=== PATIENT | male | born 1980 | race Caucasian/White ===

== ENCOUNTER 2019-05-10 20:21 | Emergency (ER) | payer MEDICAID ==
[~2019-05-10] VITALS: Ht 172.7 cm; Wt 72.6 kg
[2019-05-10 20:31] VITALS: BP 113/75
== END 2019-05-10 21:17 | disposition home or self-care (01) ==
LOC: ER 20:27
DX: L03.115 Cellulitis of right lower limb (principal); F19.10 Other psychoactive substance abuse, uncomplicated; F17.200 Nicotine dependence, unspecified, uncomplicated

== ENCOUNTER 2020-11-22 23:36 | Emergency (ER) | payer OTHER ==
[~2020-11-22] VITALS: Ht 172.7 cm; Wt 80.3 kg
[2020-11-23 00:26] VITALS: BP 121/67
--- NOTE | 2020-11-23 00:33 | NUR ---
patient left via ambulatory accompanied by [employer] in no distress
== END 2020-11-23 00:33 ==
LOC: ER 23:38
DX: S05.12XA Contusion of eyeball and orbital tissues, left eye, initial encounter (principal); Y08.89XA Assault by other specified means, initial encounter; Y93.89 Activity, other specified; Y92.89 Other specified places as the place of occurrence of the external cause; Y99.8 Other external cause status

== ENCOUNTER 2021-08-18 11:47 | Emergency (ER) | payer OTHER ==
[~2021-08-18] VITALS: Ht 172.7 cm; Wt 83.5 kg
--- NOTE | 2021-08-18 11:55 | NUR ---
BIB [id number] AND DIRECTOR OF BROADCAST OFFICERS FOR SEIZURE EPISODE IN [facility]. PT REPORTS HX OF SEIZURE WHEN WITHDRAWS FROM ALCOHOL. ADMITS DRINKING ALCOHOL. AAOX4, BREATHING EVEN AND UNLABORED, NOT IN RESP DISTRESS. SEIZURE PRECAUTIONS IN PLACE. ON MONITOR, VS STABLE. WILL CONTINUE TO MONITOR.
[2021-08-18] MEDS ORDERED: LORAZEPAM 1 MG TABLET PO ONE (12:00)
[2021-08-18] MEDS ORDERED: LORAZEPAM INJ 2 MG/ML VIAL ONE (12:07)
[2021-08-18] MEDS ORDERED: LORAZEPAM 1 MG TABLET ONE (12:09)
--- NOTE | 2021-08-18 12:30 | NUR ---
LAB AT BEDSIDE
--- NOTE | 2021-08-18 13:00 | NUR ---
URINE SAMPLE OBTAINED AND SENT TO LAB
--- NOTE | 2021-08-18 13:08 | NUR ---
LAB AT BEDSIDE AGAIN
--- NOTE | 2021-08-18 13:30 | NUR ---
SPOKE TO LAB. UNABLE TO DRAW BLOOD. WILL TRY AGAIN.
--- NOTE | 2021-08-18 14:34 | NUR ---
PT BACK FROM CT
--- NOTE | 2021-08-18 14:55 | NUR ---
LAB AT BEDSIDE
[2021-08-18 15:22] LABS: BASOPHILS # (AUTO) 0.1 K/uL (0.0-0.2); EOSINOPHILS % (AUTO) 1.1 % (0.0-6.0); HEMATOCRIT 44 % (39-51); HEMOGLOBIN 14.7 g/dL (13.5-17.5); LYMPHOCYTES # (AUTO) 2.4 K/uL (0.8-4.8); LYMPHOCYTES % (AUTO) 31.9 % (20.0-44.0); MEAN CORPUSCULAR HGB CONC 33 g/dl (31.0-36.0); MEAN CORPUSCULAR VOLUME 92 fL (80-96); MONOCYTES # (AUTO) 0.5 K/uL (0.1-1.30); MONOCYTES % (AUTO) 7.2 % (2.0-12.0); NEUTROPHILS # (AUTO) 4.4 K/uL (1.8-8.9); NEUTROPHILS % (AUTO) 58.8 % (43.0-81.0); PLATELET COUNT (AUTO) 213 K/uL (150-450); RED BLOOD CELL COUNT(AUTO) 4.81 MIL/uL (4.5-6.0); WHITE BLOOD COUNT (AUTO) 7.5 K/uL (4.3-11.0)
--- NOTE | 2021-08-18 15:22 | NUR ---
VS STABLE. NEEDS MET
[2021-08-18 15:38] LABS: ALCOHOL, BLOOD < 3 mg/dL (0-0); CALCIUM, SERUM 9.2 mg/dL (8.5-10.1); CARBON DIOXIDE 30 mmol/L (21-32); CHLORIDE 104 mmol/L (98-107); CREATININE 0.8 mg/dL (0.6-1.3); GLUCOSE 87 mg/dL (74-106); POTASSIUM 4.3 mmol/L (3.5-5.1); SODIUM SERUM 140 mmol/L (136-145); UREA NITROGEN, BLOOD 16 mg/dL (7-18)
--- NOTE | 2021-08-18 16:17 | NUR ---
Patient discharged to home in stable condition. Written and verbal after care instructions given. Patient verbalizes understanding of instruction.
[2021-08-18 16:18] VITALS: BP 113/62
== END 2021-08-18 16:18 | disposition home or self-care (01) ==
LOC: ER 11:48
DX: F19.10 Other psychoactive substance abuse, uncomplicated (principal)
CPT/HCPCS: 36415; 70450-TC; 80048-TC; 85025-TC; G0480; J2060

== ENCOUNTER 2021-09-09 15:20 | Emergency (ER) | payer OTHER ==
[~2021-09-09] VITALS: Ht 172.7 cm; Wt 85.3 kg
--- NOTE | 2021-09-09 15:32 | NUR ---
[employer] AT BEDSIDE
[2021-09-09] MEDS ORDERED: LORAZEPAM INJ 2 MG/ML VIAL ONE (15:46)
--- NOTE | 2021-09-09 15:59 | NUR ---
URINE SAMPLE COLLECTED AND SENT TO LAB
[2021-09-09] MEDS ORDERED: LORAZEPAM INJ 2 MG/ML VIAL IVP ONE (16:00)
--- NOTE | 2021-09-09 16:03 | NUR ---
[employer] AT BEDSIDE
[2021-09-09 16:14] LABS: BASOPHILS % (AUTO) 0.4 % (0.0-2.0); EOSINOPHILS % (AUTO) 0.2 % (0.0-6.0); HEMATOCRIT 42 % (39-51); HEMOGLOBIN 13.8 g/dL (13.5-17.5); LYMPHOCYTES # (AUTO) 1.8 K/uL (0.8-4.8); LYMPHOCYTES % (AUTO) 17.6 % (20.0-44.0); MEAN CORPUSCULAR HGB CONC 33 g/dl (31.0-36.0); MEAN CORPUSCULAR VOLUME 92 fL (80-96); MONOCYTES # (AUTO) 0.8 K/uL (0.1-1.30); MONOCYTES % (AUTO) 7.7 % (2.0-12.0); NEUTROPHILS # (AUTO) 7.7 K/uL (1.8-8.9); NEUTROPHILS % (AUTO) 74.1 % (43.0-81.0); PLATELET COUNT (AUTO) 188 K/uL (150-450); RED BLOOD CELL COUNT(AUTO) 4.56 MIL/uL (4.5-6.0); WHITE BLOOD COUNT (AUTO) 10.3 K/uL (4.3-11.0)
[2021-09-09 17:29] LABS: CARBON DIOXIDE 28 mmol/L (21-32); CHLORIDE 97 mmol/L (98-107); CREATININE 0.8 mg/dL (0.6-1.3); GLUCOSE 108 mg/dL (74-106); POTASSIUM 3.2 mmol/L (3.5-5.1); SODIUM SERUM 134 mmol/L (136-145); UREA NITROGEN, BLOOD 17 mg/dL (7-18)
[2021-09-09 17:32] LABS: ALCOHOL, BLOOD < 3 mg/dL (0-0)
[2021-09-09] MEDS ORDERED: POTASSIUM CHLORIDE 20 MEQ TAB.PRT.SR PO ONE ×2 (18:00→18:01)
--- NOTE | 2021-09-09 19:06 | NUR ---
CALLED TO FOLLOW UP URINE RESULT.
--- NOTE | 2021-09-09 19:08 | NUR ---
PER LAB STAFF CLS IS ON LUNCH WILL RUN THE DRUG SCREEN WHEN CLS COME'S BACK.
--- NOTE | 2021-09-09 19:11 | NUR ---
FOLLOWED UP DRUG SCREEN URINE WITH MAIN LAB. PER TRUCKING SUPERVISOR, AWAITING FOR CLS TO RUN TEST.
--- NOTE | 2021-09-09 19:15 | NUR ---
REPORT GIVEN TO SELENE CHARLES FOR [facility]EC[facility]
--- NOTE | 2021-09-09 20:44 | NUR ---
Patient discharged to home in stable condition. Written and verbal after care instructions given. Patient verbalizes understanding of instruction. IV removed. Catheter intact and site benign. Pressure and 4x4 applied to site. No bleeding noted. Pt ambulatory with a steady gait
[2021-09-10 01:10] VITALS: BP 129/78
== END 2021-09-09 22:55 | disposition home or self-care (01) ==
LOC: ER 15:25
DX: F19.10 Other psychoactive substance abuse, uncomplicated (principal); R51.9 Headache, unspecified; M54.2 Cervicalgia; F17.200 Nicotine dependence, unspecified, uncomplicated; Z60.2 Problems related to living alone
CPT/HCPCS: 36415; 70450; 71045; 72125; 80048; 80307; 80320; 85025; 96374; 99285; J2060; G0480